=== PATIENT | female | born 1960 | race Caucasian/White ===

== ENCOUNTER 2017-05-06 01:04 | Emergency (ER) | payer MEDICARE ==
[2017-05-06] MEDS ORDERED: IPRATROPIUM/ALBUTEROL 0.5-2.5 MG/3 ML AMPUL NEB ONE ×3 (01:13→02:20)
[2017-05-06] MEDS ORDERED: METHYLPREDNISOLONE INJ 125 MG/2 ML SDV IV ONE (01:13)
--- NOTE | 2017-05-06 01:17 | ER Document Report ---
ED Respiratory Problem - General Stated Complaint: CHEST PAIN Time Seen by Provider: 05/06/17 01:09 Notes: Patient is a 56-year-old female with a history of COPD who currently smokes that comes by EMS for chief complaint of cough, difficulty breathing, chest tightness, fever over the past day, and sick symptoms for the past 4 days or so. She is not oxygen dependent. She states that she has not had much to eat or drink over the past 2 days because eating makes her feel worse and she feels nauseated. She denies vomiting. Other past medical history includes Crohn's and ulcerative colitis, she denies cardiovascular history. Family at bedside. TRAVEL OUTSIDE OF THE [place] IN LAST 30 DAYS: No - Related Data Allergies/Adverse Reactions: metronidazole [From Flagyl] Allergy (Verified 06/19/15 08:11) Metronidazole HCl [From Flagyl] Allergy (Verified 06/19/15 08:11) Past Medical History - General Information source: Patient - Social History Smoking Status: Current Every Day Smoker Smoking Education Provided: Yes - <3 min Drug Abuse: None Lives with: Family Family History: Reviewed & Not Pertinent Pulmonary Medical History: Reports: Hx Asthma, Hx COPD Neurological Medical History: Reports: Hx Migraine GI Medical History: Reports: Hx Crohn's Disease, Hx Ulcerative Colitis Psychiatric Medical History: Reports: Hx Anxiety, Hx Attention Deficit Hyperactivity Disorder, Hx Depression Past Surgical History: Reports: Hx Abdominal Surgery, Hx Section - x 3 - Immunizations Hx Diphtheria, Pertussis, Tetanus Vaccination: Yes Review of Systems - Review of Systems Constitutional: See HPI EENT: No symptoms reported Cardiovascular: See HPI Respiratory: See HPI Gastrointestinal: No symptoms reported Genitourinary: No symptoms reported Female Genitourinary: No symptoms reported Musculoskeletal: No symptoms reported Skin: No symptoms reported Hematologic/Lymphatic: No symptoms reported Neurological/Psychological: No symptoms reported Physical Exam - Vital signs Vitals: Temp Resp 99.5 F 22 H 05/06/17 01:20 05/06/17 01:20 - General General appearance: Alert In distress: None - HEENT Head: Normocephalic, Atraumatic Eyes: Normal Conjunctiva: Normal Extraocular movements intact: Yes Eyelashes: Normal Pupils: PERRL Nasal: Normal Mouth/Lips: Normal Mucous membranes: Normal Pharynx: Normal Neck: Normal - Respiratory Respiratory status: Tachypnea - Mild tachypnea. No: Respiratory distress Breath sounds: Decreased air movement, Nonproductive cough, Rhonchi, Wheezing - Cardiovascular Rhythm: Regular, Tachycardia Heart sounds: Normal auscultation, S1 appreciated, S2 appreciated - Abdominal Inspection: Normal Tenderness: Nontender. No: Tender, Guarding - Back Back: Normal. No: Tender - Extremities General upper extremity: Normal inspection, Nontender, Normal ROM, Normal strength General lower extremity: Normal inspection, Nontender, Normal ROM, Normal strength - Neurological Neuro grossly intact: Yes Cognition: Normal Orientation: AAOx4 Ev Coma Scale Eye Opening: Spontaneous Ev Coma Scale Verbal: Oriented Ev Coma Scale Motor: Obeys Commands Ev Coma Scale Total: 15 Speech: Normal Motor strength normal: LUE, RUE, LLE, RLE Sensory: Normal - Skin Skin Temperature: Warm Skin Moisture: Dry Skin Color: Normal Course - Re-evaluation Re-evalutation: After initial DuoNeb treatments and Solu-Medrol patient still has some expiratory wheezing and scattered rhonchi. Giving additional treatments and magnesium. She has no labored breathing, tachypnea, hypoxia, or distress. Speaking in full sentences. CBC, chemistry, cardiac enzymes, EKG, chest x-ray all unremarkable with no acute findings. Evidence of some emphysema on chest x-ray. On reevaluation patient is now clear, states her breathing is much better, asking to go home. I discussed her chest x-ray, emphysema, smoking cessation. She states she will definitely be quitting smoking. Unfortunately we do not have the ability to test patient for influenza at this time. Discussed Tamiflu although this was declined. Patient ambulated with pulse oxygenation measurement, she did very well without pulse oxygen dropping below 93%, she did not have significantly labored breathing or diaphoresis. She states she still wants to go home. Could be underlying developing pneumonia since she has been sick for a week and now has worsened. Treating with doxycycline for coverage in case she has underlying pneumonia, treating with prednisone, albuterol, discussed close follow-up, discussed return precautions in detail. Patient states understanding and agreement. - Vital Signs Vital signs: Temp Pulse Resp BP Pulse Ox 99.5 F 26 H 108/59 L 93 05/06/17 01:20 05/06/17 03:50 05/06/17 03:50 05/06/17 03:49 - Laboratory Result Diagrams: 05/06/17 01:35 05/06/17 01:35 Laboratory results interpreted by me: 05/06/17 05/06/17 05/06/17 01:35 01:35 01:35 Plt Count 147 L VBG pH 7.52 H VBG pCO2 34.0 L Potassium 3.4 L Discharge - Discharge Clinical Impression: Shortness of breath, Productive cough, Wheezing Condition: Stable Disposition: HOME, SELF-CARE Additional Instructions: Your examination is consistent with an upper respiratory infection, bronchitis, possibly a developing underlying pneumonia. Take the doxycycline antibiotic as prescribed, take prednisone as prescribed, use the albuterol inhaler every 4-6 hours as needed for cough/wheezing. Rest. Stop smoking. Follow-up with primary care within the next few days and see if see referral). Return if you worsen in any way including difficulty breathing, spiking fever, or any other concerning symptoms. Prescriptions: Albuterol Sulfate [Proair HFA Inhalation Aerosol 8.5 gm MDI] 2 puff IH Q4H PRN # 1 mdi PRN Reason: Doxycycline Hyclate 100 mg PO BID #14 capsule Prednisone 60 mg PO DAILY #15 tablet Forms: Smoking Cessation Education
[2017-05-06] MEDS ORDERED: NORMAL SALINE 1000 ML 1,000 ML IV ONE (01:34)
[2017-05-06 01:56] LABS: ABSOLUTE LYMPHOCYTES (AUTO) 0.7 10^3/uL (0.5-4.7); ABSOLUTE MONOCYTES (AUTO) 0.5 10^3/uL (0.1-1.4); ABSOLUTE NEUT (AUTO) 3.9 10^3/uL (1.7-8.2); BASOPHILS % (AUTO) 0.4 % (0-2); EOSINOPHILS % (AUTO) 0.5 % (0-6); HEMATOCRIT 38.4 % (36.0-47.0); HEMOGLOBIN 13.3 g/dL (12.0-15.5); LYMPHOCYTES % (AUTO) 13.1 % (13-45); MEAN CORPUSCULAR HEMOGLOBIN 31.2 pg (27.0-33.4); MEAN CORPUSCULAR HGB CONC 34.5 g/dL (32.0-36.0); MEAN CORPUSCULAR VOLUME 90 fl (80-97); MONOCYTES % (AUTO) 9.1 % (3-13); PLATELET COUNT 147 10^3/uL (150-450); RED BLOOD COUNT 4.25 10^6/uL (3.72-5.28); RED CELL DISTRIBUTION WIDTH 13.6 % (11.5-14.0); SEGMENTED NEUTROPHILS % (AUTO) 76.9 % (42-78); TOTAL CELLS COUNTED % (AUTO) 100 %; VENOUS BLOOD BASE EXCESS 4.2 mmol/L; VENOUS BLOOD HCO3 26.9 mmol/L (20-32); VENOUS BLOOD PH 7.52 (7.30-7.42); WHITE BLOOD COUNT 5.1 10^3/uL (4.0-10.5)
[2017-05-06 02:14] LABS: ALANINE AMINOTRANSFERASE 25 U/L (9-52); ALBUMIN 3.7 g/dL (3.5-5.0); ALKALINE PHOSPHATASE 68 U/L (38-126); ANION GAP 12 (5-19); ASPARTATE AMINO TRANSFERASE 16 U/L (14-36); BILIRUBIN,DIRECT 0.4 mg/dL (0.0-0.4); BILIRUBIN,TOTAL 0.8 mg/dL (0.2-1.3); BLOOD UREA NITROGEN 10 mg/dL (7-20); CALCIUM 8.6 mg/dL (8.4-10.2); CARBON DIOXIDE 24 mmol/L (22-30); CHLORIDE 103 mmol/L (98-107); CREATINE KINASE 51 U/L (30-135); GLUCOSE 103 mg/dL (75-110); POTASSIUM 3.4 mmol/L (3.6-5.0); SODIUM 138.5 mmol/L (137-145)
[2017-05-06] MEDS ORDERED: MAGNESIUM SULFATE/D5W 1 GM/100 ML RTUPB IV PRN (02:20)
--- NOTE | 2017-05-06 02:21 | RADIOLOGY REPORT (SQ) ---
EXAM DESCRIPTION: CHEST SINGLE VIEW CLINICAL HISTORY: 56 years, Female, cough, shortness of breath COMPARISON: None. NUMBER OF VIEWS: One TECHNIQUE: AP portable upright LIMITATIONS: None. FINDINGS: Mild emphysematous hyperinflation, normal cardiac silhouette, and intact bony thorax. IMPRESSION: No acute cardiopulmonary findings.
[2017-05-06 02:45] LABS: CREATINE KINASE MB < 0.22 ng/mL (<4.55); TROPONIN I < 0.012 ng/mL
[2017-05-06] MEDS ORDERED: DOXYCYCLINE HYCLATE 100 MG TABLET PO ONE (03:25)
[2017-05-06] MEDS ORDERED: ALBUTEROL SULFATE HFA (90 MCG/PUFF) 8 GM MDI (1 MDI/ER DISP) IH ONE (03:42)
[2017-05-06 04:03] VITALS: BP 108/59
--- NOTE | 2017-05-06 09:39 | EKG REPORT ---
SEVERITY:- BORDERLINE ECG - SINUS RHYTHM PROBABLE LEFT ATRIAL ABNORMALITY BORDERLINE RIGHT AXIS DEVIATION BORDERLINE T ABNORMALITIES, ANT-LAT LEADS : Confirmed by: Isabella Watson 06-May-2017 09:38:54
== END 2017-05-06 04:03 | disposition home or self-care (01) ==
LOC: ER 01:04
DX: R06.02 Shortness of breath (principal); R06.2 Wheezing; R05 Cough; R07.9 Chest pain, unspecified; F17.200 Nicotine dependence, unspecified, uncomplicated
CPT/HCPCS: 93005; 94640 ×2; 99285; 96361; 96375; 96365; 36415; 87040; 82553; 82550; 85025; 80053; 84484; 82803; 71045; 93010; A9270 ×2; J2930; J3475; J7030; J3490; J7620

== ENCOUNTER 2017-09-30 21:46 | Emergency (ER) | payer MEDICARE ==
--- NOTE | 2017-09-30 23:47 | ER Document Report ---
ED Medical Screen (RME) - General Chief Complaint: Urinary Frequency Stated Complaint: BLOOD IN URINE Time Seen by Provider: 09/30/17 23:45 Mode of Arrival: Wheelchair Information source: Patient Notes: 56-year-old female presents to ED for complaint of blood in her urine today. She states she started out this morning with burning and frequency and urgency with urination. She states the first time she saw the bladder was just a small amount of pink blood in the urine. She states the second time was a large amount it was bright red and blood clots in the urine. She states she is having to go to the bathroom almost as soon as she gets up from going to the bathroom and now she hurts in both flanks. She is tender to touch in bilateral flanks. I have greeted and performed a rapid initial assessment of this patient. A comprehensive ED assessment and evaluation of the patient, analysis of test results and completion of medical decision making process will be conducted by an additional ED providers. TRAVEL OUTSIDE OF THE [place] IN LAST 30 DAYS: No - Related Data Allergies/Adverse Reactions: metronidazole [From Flagyl] Allergy (Verified 06/19/15 08:11) Metronidazole HCl [From Flagyl] Allergy (Verified 06/19/15 08:11) Past Medical History Pulmonary Medical History: Reports: Hx Asthma, Hx COPD Neurological Medical History: Reports: Hx Migraine Renal/ Medical History: Denies: Hx Peritoneal Dialysis GI Medical History: Reports: Hx Crohn's Disease, Hx Ulcerative Colitis Psychiatric Medical History: Reports: Hx Anxiety, Hx Attention Deficit Hyperactivity Disorder, Hx Depression Past Surgical History: Reports: Hx Abdominal Surgery, Hx Section - x 3 - Immunizations Hx Diphtheria, Pertussis, Tetanus Vaccination: Yes Physical Exam - Vital signs Vitals: Temp Pulse Resp BP Pulse Ox 98.0 F 76 17 118/74 100 09/30/17 22:22 09/30/17 22:22 09/30/17 22:22 09/30/17 22:22 09/30/17 22:22 Course - Vital Signs Vital signs: Temp Pulse Resp BP Pulse Ox 98.0 F 76 17 118/74 100 09/30/17 22:22 09/30/17 22:22 09/30/17 22:22 09/30/17 22:22 09/30/17 22:22
[2017-09-30] MEDS ORDERED: ONDANSETRON 4 MG TAB.RAPDIS PO ONE (23:48)
[2017-09-30] MEDS ORDERED: OXYCODONE-ACETAMINOPHEN 5-325 MG TABLET PO ONE (23:48)
[2017-10-01 00:29] LABS: APPEARANCE,URINE CLOUDY; BILIRUBIN,URINE NEGATIVE (NEGATIVE); COLOR,URINE YELLOW; GLUCOSE, URINE NEGATIVE (NEGATIVE); KETONES,URINE NEGATIVE (NEGATIVE); LEUKOCYTE ESTERASE,URINE LARGE (NEGATIVE); NITRITE,URINE NEGATIVE (NEGATIVE); PROTEIN,URINE 100 mg/dL (NEGATIVE); URINE SPECIFIC GRAVITY 1.012; UROBILINOGEN,URINE NEGATIVE mg/dL (<2.0)
[2017-10-01] MEDS ORDERED: PHENAZOPYRIDINE HCL 100 MG TABLET PO ONE (00:41)
[2017-10-01] MEDS ORDERED: CEFTRIAXONE 1 GM/D5W RTU 1 GM/50 ML RTUPB IV ONE (01:15)
[2017-10-01 01:28] LABS: ABSOLUTE BASOPHILS # (AUTO) 0.1 10^3/uL (0.0-0.2); ABSOLUTE EOSINOPHILS # (AUTO) 0.2 10^3/uL (0.0-0.6); ABSOLUTE MONOCYTES (AUTO) 0.5 10^3/uL (0.1-1.4); ABSOLUTE NEUT (AUTO) 7.2 10^3/uL (1.7-8.2); BASOPHILS % (AUTO) 0.7 % (0-2); EOSINOPHILS % (AUTO) 1.9 % (0-6); HEMATOCRIT 46.8 % (36.0-47.0); HEMOGLOBIN 15.6 g/dL (12.0-15.5); LYMPHOCYTES % (AUTO) 20.3 % (13-45); MEAN CORPUSCULAR HEMOGLOBIN 30.6 pg (27.0-33.4); MEAN CORPUSCULAR HGB CONC 33.4 g/dL (32.0-36.0); MEAN CORPUSCULAR VOLUME 92 fl (80-97); PLATELET COUNT 188 10^3/uL (150-450); RED CELL DISTRIBUTION WIDTH 13.8 % (11.5-14.0); SEGMENTED NEUTROPHILS % (AUTO) 72.1 % (42-78); TOTAL CELLS COUNTED % (AUTO) 100 %
[2017-10-01 01:36] LABS: ALANINE AMINOTRANSFERASE 15 U/L (9-52); ALBUMIN 4.9 g/dL (3.5-5.0); ALKALINE PHOSPHATASE 62 U/L (38-126); ANION GAP 13 (5-19); ASPARTATE AMINO TRANSFERASE 54 U/L (14-36); BILIRUBIN,DIRECT 0.5 mg/dL (0.0-0.4); BILIRUBIN,TOTAL 0.5 mg/dL (0.2-1.3); BLOOD UREA NITROGEN 8 mg/dL (7-20); CALCIUM 9.5 mg/dL (8.4-10.2); CARBON DIOXIDE 28 mmol/L (22-30); CHLORIDE 105 mmol/L (98-107); GLUCOSE 83 mg/dL (75-110); POTASSIUM 4.3 mmol/L (3.6-5.0); SODIUM 146.2 mmol/L (137-145); TOTAL PROTEIN 9.2 g/dL (6.3-8.2)
--- NOTE | 2017-10-01 01:42 | ER Document Report ---
ED General - General Chief Complaint: Urinary Frequency Stated Complaint: BLOOD IN URINE Time Seen by Provider: 09/30/17 23:45 Mode of Arrival: Wheelchair Information source: Patient Notes: Patient is a 56-year-old female who presents with chief complaint of urinary symptoms that started yesterday. Patient reports that initially she was having some pain with urination which was followed by blood with clots in her urine. Patient reports that she also has pain in the left flank and left lower quadrant. Patient has not had any fevers. Patient denies any nausea or vomiting. Patient has no history of kidney stones. TRAVEL OUTSIDE OF THE [place] IN LAST 30 DAYS: No - Related Data Allergies/Adverse Reactions: metronidazole [From Flagyl] Allergy (Verified 06/19/15 08:11) Metronidazole HCl [From Flagyl] Allergy (Verified 06/19/15 08:11) Past Medical History - General Information source: Patient - Social History Smoking Status: Current Every Day Smoker Chew tobacco use (# tins/day): No Frequency of alcohol use: None Drug Abuse: None Family History: Reviewed & Not Pertinent Patient has suicidal ideation: No Patient has homicidal ideation: No Pulmonary Medical History: Reports: Hx Asthma, Hx COPD Neurological Medical History: Reports: Hx Migraine Renal/ Medical History: Denies: Hx Peritoneal Dialysis GI Medical History: Reports: Hx Crohn's Disease, Hx Ulcerative Colitis Psychiatric Medical History: Reports: Hx Anxiety, Hx Attention Deficit Hyperactivity Disorder, Hx Depression Past Surgical History: Reports: Hx Abdominal Surgery, Hx Section - x 3 - Immunizations Hx Diphtheria, Pertussis, Tetanus Vaccination: Yes Review of Systems - Review of Systems Constitutional: No symptoms reported EENT: No symptoms reported Cardiovascular: No symptoms reported Respiratory: No symptoms reported Gastrointestinal: No symptoms reported Genitourinary: See HPI Female Genitourinary: No symptoms reported Musculoskeletal: No symptoms reported Skin: No symptoms reported Hematologic/Lymphatic: No symptoms reported Neurological/Psychological: No symptoms reported Physical Exam - Vital signs Vitals: Temp Pulse Resp BP Pulse Ox 98.0 F 76 17 118/74 100 09/30/17 22:22 09/30/17 22:22 09/30/17 22:22 09/30/17 22:22 09/30/17 22:22 - Notes Notes: PHYSICAL EXAMINATION: GENERAL: Well-appearing, well-nourished and in no acute distress. HEAD: Atraumatic, normocephalic. EYES: Pupils equal round and reactive to light, extraocular movements intact, conjunctiva are normal. ENT: Nares patent, oropharynx clear without exudates. Moist mucous membranes. NECK: Normal range of motion, supple without lymphadenopathy LUNGS: Breath sounds clear to auscultation bilaterally and equal. No wheezes rales or rhonchi. HEART: Regular rate and rhythm without murmurs ABDOMEN: Soft, nondistended abdomen. Mild tenderness to palpation to left lower quadrant. No guarding, no rebound. No masses appreciated. Female : No CVA tenderness noted. Musculoskeletal: Normal range of motion, no pitting or edema. No cyanosis. NEUROLOGICAL: Cranial nerves grossly intact. Normal speech, normal gait. Normal sensory, motor exams PSYCH: Normal mood, normal affect. SKIN: Warm, Dry, normal turgor, no rashes or lesions noted. Course - Re-evaluation Re-evalutation: 56-year-old female presenting with chief complaint of left flank, left lower quadrant and urinary symptoms started yesterday. Initial workup reveals a urinalysis with large blood, large leukocytes, greater than 182 RBCs, nitrates negative. CBC and comprehensive metabolic panel are normal. Will add on a CT renal stone study due to large amount of blood in patient's urine as well as patient's complaint of left flank pain. Patient will be given 1 g of IV Rocephin. CT renal stone study with no acute findings. Urine will be sent for culture. Patient will be discharged home on oral antibiotics for urinary tract infection. Patient will follow up with her primary care doctor in the next 2-3 days for follow-up. Patient will return to the emergency department if she develops fever or worsening symptoms. - Vital Signs Vital signs: Temp Pulse Resp BP Pulse Ox 98.1 F 62 13 124/72 98 10/01/17 04:29 10/01/17 04:29 10/01/17 04:29 10/01/17 04:29 10/01/17 04:29 - Laboratory Result Diagrams: 10/01/17 00:54 10/01/17 00:54 Laboratory results interpreted by me: 09/30/17 10/01/17 10/01/17 23:59 00:54 00:54 Hgb 15.6 H Sodium 146.2 H Direct Bilirubin 0.5 H AST 54 H Total Protein 9.2 H Urine Protein 100 H Urine Blood LARGE H Ur Leukocyte Esterase LARGE H Discharge - Discharge Clinical Impression: Urinary tract infection Qualifiers: Urinary tract infection type: site unspecified Hematuria presence: with hematuria Qualified Code(s): N39.0 - Urinary tract infection, site not specified Condition: Stable Disposition: HOME, SELF-CARE Additional Instructions: URINARY TRACT INFECTION: Your evaluation indicates that you have a urinary tract infection. This is due to germs growing in the bladder. This is a common problem. This infection usually responds quickly to antibiotics. Your antibiotic should be taken exactly as prescribed. Drink plenty of fluids -- three to four quarts a day. Occasionally, a bladder anesthetic will be prescribed to help stop the feeling of urgency until the antibiotic has a chance to clear the infection. This may cause your urine to be dark orange. Certain urine infections require a culture. If the doctor obtained a culture, the results will be back in two days. You should call to see if a change in treatment is needed. A repeat urinalysis after you finish treatment is often recommended. The physician will let you know if further testing is required. Call the doctor if you develop fever, chills, flank pain, inability to urinate, or blood in the urine. ANTIBIOTIC THERAPY: You have been given an antibiotic prescription. It's important that you take all the medication, unless instructed otherwise by your physician. Failure to complete the entire course can result in relapse of your condition. Common side effects of antibiotics include nausea, intestinal cramping, or diarrhea. Women may develop vaginal yeast infections, and babies can get yeast (thrush) in the mouth following the use of antibiotics. Contact your physician if you develop significant side effects from this medication. Allergy to this antibiotic can result in hives, wheezing, faintness, or itching. If symptoms of allergy occur, stop the medication and call the doctor. TRIMETHOPRIM-SULFA: You have been given a prescription for trimethoprim-sulfa (TMS, Septra, Bactrim). This is a combination antibiotic of the sulfa class, often used for urinary tract infections, middle ear infections, bronchitis, shigella intestinal infection, and Pneumocystis pneumonia. TMS is usually well-tolerated. Occasional side effects include nausea and decreased appetite. Septra is not recommended for infants less than two months of age. Do not take this medication if you have experienced severe side effects or allergy to sulfa medicine. You should stop this medicine at once and contact your physician if you develop any rash, joint pain, shortness of breath, bruising, or jaundice ( yellow color in the skin), or if you develop any other new or unusual symptoms. URINARY ANESTHETIC AGENT: You have been given a medication (Pyridium) for urinary tract discomfort. This medicine numbs the lining of the bladder and urethra, resulting in less pain, burning, and urgency. You may take it as needed, according to instructions. When the symptoms resolve, you can stop this medication (be sure to continue any other medications the doctor has given you). This medicine turns the urine a dark orange. It may stain underwear. Occasionally, it can cause nausea. Return for evaluation if there are any unexpected effects, such as itching, hives, or shortness of breath. FOLLOW-UP CARE: If you have been referred to a physician for follow-up care, call the physician s office for an appointment as you were instructed or within the next two days. If you experience worsening or a significant change in your symptoms, notify the physician immediately or return to the Emergency Department at any time for re-evaluation. Please take medications as directed. Please complete all of the antibiotics even if your symptoms resolved. Your CT scan today did not show any evidence of any concerning kidney stones. Please follow-up with your primary care provider in the next 2-3 days for a follow-up. Please return to the emergency department if you develop worsening symptoms or development of fever. Prescriptions: Phenazopyridine HCl [Pyridium] 100 mg PO TID #6 tablet Sulfamethoxazole/Trimethoprim [Septra-Ds 800-160 mg Tablet] 1 tab PO BID 7 Days #17 tablet Sulfamethoxazole/Trimethoprim [Bactrim Ds Tablet] 2 tab PO BID #28 tablet Referrals: MARLA GOODMAN MD [Primary Care Provider] - Follow up as needed
[2017-10-01] MEDS ORDERED: CEFTRIAXONE INJ 1000 MG VIAL ONE (02:11)
--- NOTE | 2017-10-01 03:41 | RADIOLOGY REPORT (SQ) ---
EXAM DESCRIPTION: CT ABDOMEN WITHOUT IV CONTRAST COMPLETED DATE/TME: 10/01/2017 01:47 CLINICAL HISTORY: left flank pain, hematuria COMPARISON: None Available. TECHNIQUE: CT of the abdomen and pelvis without IV contrast. Evaluation of the solid organs and vasculature is suboptimal due to lack of IV contrast. DLP: 252.34 mGy-cm FINDINGS: Lung Bases: The visualized lung bases are clear. Bones: No destructive bone lesions identified. Abdomen: Liver: The liver has normal size and density. Gallbladder: No calcified gallstones. Spleen, Pancreas, and Adrenal Glands: The spleen, pancreas, and adrenal glands are unremarkable. Kidneys: Punctate nonobstructing right renal calculus. No obstructing ureteral calculi or hydronephrosis. Vasculature: Aortoiliac atherosclerosis. IVC is unremarkable. Stomach: The stomach and duodenum have normal course. Other: No free intraperitoneal air. No free fluid or lymphadenopathy. Pelvis: Bladder: Urinary bladder is unremarkable. Bowel: Postoperative change in the colon. No evidence of acute appendicitis. Appendix: Normal appendix. Pelvis: No large adnexal masses. Small fat-containing ventral hernia. IMPRESSION: 1. No acute inflammatory or obstructive process identified. 2. Punctate nonobstructing right nephrolithiasis. This exam was performed according to our departmental dose-optimization program, which includes automated exposure control, adjustment of the mA and/or kV according to patient size and/or use of iterative reconstruction technique.
[2017-10-01] MEDS ORDERED: HYDROCODONE/ACETAMINOPHEN 5-325 MG (6 TAB/ER DISP) PO PRN (04:04)
[2017-10-01 04:32] VITALS: BP 124/72
== END 2017-10-01 04:32 | disposition home or self-care (01) ==
LOC: ER 21:46
DX: N39.0 Urinary tract infection, site not specified (principal); R35.0 Frequency of micturition; R10.32 Left lower quadrant pain; F17.200 Nicotine dependence, unspecified, uncomplicated; J44.9 Chronic obstructive pulmonary disease, unspecified
CPT/HCPCS: 99284; 96365; 36415; 87086; 85025; 80053; 81001; 76380; A9270 ×4; J0696; J3490; S0119

== ENCOUNTER 2018-08-10 19:43 | Emergency (ER) | payer MEDICARE ==
[2018-08-10 20:05] VITALS: BP 99/68
[2018-08-10] MEDS ORDERED: OXYCODONE-ACETAMINOPHEN 5-325 MG TABLET PO ONE (22:10)
[2018-08-10] MEDS ORDERED: ONDANSETRON 4 MG TAB.RAPDIS PO ONE (22:10)
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
== END 2018-08-10 22:59 | disposition left against medical advice (07) ==
LOC: ER 19:43
DX: R51 Headache (principal); F17.200 Nicotine dependence, unspecified, uncomplicated; V89.2XXA Person injured in unspecified motor-vehicle accident, traffic, initial encounter
CPT/HCPCS: 99281; 73502; 72110; A9270 ×2; S0119